=== PATIENT | female | born 1955 | race Caucasian/White ===

== ENCOUNTER 2021-06-13 14:50 | Outpatient (REF) | payer MEDICARE, SELFPAY ==
[2021-06-13 19:20] LABS: Anion Gap 7.3 mmol/L (3-11); BUN 12 mg/dL (7-18); CO2 28.7 mmol/L (21.0-32.0); CREATININE 0.6 mg/dL (0.55-1.02); Calcium 9.4 mg/dL (8.5-10.1); Chloride 106 mmol/L (98-107); Glucose 91 mg/dL (74-106); Potassium 4.8 mmol/L (3.5-5.1); Sodium 142 mmol/L (136-145)
== END 2021-06-13 14:51 | disposition home or self-care (01) ==
LOC: NCHCN 14:50
PROVIDERS: Visit Provider Physician Assistant
DX: E03.9 Hypothyroidism, unspecified (principal); K21.9 Gastro-esophageal reflux disease without esophagitis; E66.9 Obesity, unspecified
CPT/HCPCS: 80048; 84443

== ENCOUNTER 2022-06-19 12:59 | Outpatient (REF) | payer MEDICARE, SELFPAY ==
[2022-06-19 19:31] LABS: Anion Gap 7.3 mmol/L (3-11); BUN 14 mg/dL (7-18); CO2 27.7 mmol/L (21.0-32.0); CREATININE 0.8 mg/dL (0.55-1.02); Calcium 9.2 mg/dL (8.5-10.1); Chloride 104 mmol/L (98-107); Glucose 93 mg/dL (74-106); Potassium 4.3 mmol/L (3.5-5.1); Sodium 139 mmol/L (136-145)
== END 2022-06-19 13:00 | disposition home or self-care (01) ==
LOC: NCHCN 12:59
PROVIDERS: Visit Provider Physician Assistant
DX: E03.9 Hypothyroidism, unspecified (principal); K21.9 Gastro-esophageal reflux disease without esophagitis
CPT/HCPCS: 80048; 84443

== ENCOUNTER 2023-06-23 19:03 | Outpatient (REF) | payer MEDICARE, SELFPAY ==
--- OUTSIDE RECORDS SUMMARY | 2023-06-23 19:08 | XMS_ITS | Continuity of Care Document ---
Author Name Unknown Organization [facility] Address [address] [place] [address] Care Team Providers Care Morning Nanny Name Role Phone Roseanna Caraballo Primary Care Physician Encounter [facility] Date(s): 01/16/23 - 01/16/[address] [address] Discharge Disposition: Home or Self Care Attending Physician: René Lowery MD Admitting Physician: René Lowery MD Referring Physician: Roseanna Caraballo PA-C Allergies, Adverse Reactions, Alerts No Known Medication Allergies Functional Status 01/16/23 ADLs Independent Family Member Travel History No recent t ravel Recent Travel History No recent travel Other exposure to Infectious Disease Non e Medications chromium picolinate 1000 mcg oral tablet 1,000 mcg = 1 tab, Oral, Daily, # 90 tab, 0 Refill(s) Start Date: 12/03/22 Status: Ordered levothyroxine 88 mcg (0.088 mg) oral capsule 88 mcg = 1 cap, Oral, Daily, # 30 cap, 0 Refill(s) Start Date: 12/03/22 Status: Ordered omeprazole 40 mg oral delayed release capsule 40 mg = 1 cap, Oral, Daily, # 30 cap, 0 Refill(s) Start Date: 12/03/22 Status: Ordered Vitamin B Complex oral tablet 1 tab, Oral, Daily, # 30 tab, 0 Refill(s) Start Date: 12/03/22 Status: Ordered Vitamin C 0 Refill(s) Start Date: 12/03/22 Status: Ordered Vitamin D3 0 Refill(s) Start Date: 12/03/22 Status: Ordered Problem List Condition Confirmation Course Effective Dates Status H ealth Status Informant Arthritis Confirmed Active GERD (gastroesophageal reflux disease) Confirmed Active Hypothyroidism Confirmed Active Insomnia Confirmed Active Obesity Confirmed Active Plantar fasciitis Confirmed Active Plantar wart Confirmed Active Procedures Procedure Date Related Diagnosis Body Site Status Cholecystectomy; 01/25/13 Complete d section 1 Comple nohemy Colonoscopy 2 Completed EGD - Esophagogastroduodenoscopy 3 Completed Surgery care 4 Completed w/ T/L - 1980 [id number] 4surg. disectomy 1991 Vital Signs Most recent to oldest [Reference Range]: 1 2 3 Temperature Oral [35.8-37.3 Deg C] 36.9 Deg C (01/16/23 11:53 AM) Temperature Temporal Artery [36-38 Deg C] 35.6 Deg C *LOW* (01/16/23 2:30 PM) 35.3 Deg C *LOW* (01/16/23 1:54 PM) Temperature Temporal Artery (DegF) [97.3-100 Deg F] 96.08 Deg F *LOW* (01/16/23 2:30 PM) 95.54 Deg F *LOW* (01/16/23 1:54 PM) Peripheral Pulse Rate [60-100 bpm] 75 bpm (01/16/23 2:30 PM) 71 bpm (01/16/23 2:25 PM) 61 bpm (01/16/23 2:10 PM) Heart Rate Monitored [60-100 bpm] 74 bpm (01/16/23 2:30 PM) 72 bpm (01/16/23 2:25 PM) 61 bpm (01/16/23 2:10 PM) Respiratory Rate [12-24 br/min] 22 br/min (01/16/23 2:30 PM) 16 br/min (01/16/23 2:25 PM) 10 br/min *LOW* (01/16/23 2:10 PM) Blood Pressure [90-140/60-90 mmHg] 115/84mmHg (01/16/23 2:30 PM) 97/62mmHg (01/16/23 2:25 PM) 104/63mmHg (01/16/23 2:10 PM) Mean Arterial Pressure, Cuff [65-140 mmHg] 94 mmHg (01/16/23 2:30 PM) 74 mmHg (01/16/23 2:25 PM) 77 mmHg (01/16/23 2:10 PM) Blood Pressure Location Left arm (01/16/23 11:53 AM) Blood Pressure Method Automatic (01/16/23 11:53 AM) Weight 65.7 kg (01/16/23 11:53 AM) Height 145 cm (01/16/23 11:53 AM) Social History Social History Type Response Tobacco Never tobacco user T obacco Use:. Sex Female Hospital Discharge Instructions Patient Education 01/16/2023 12:56:32 ss colonoscopy discharge instructions (CUSTOM) COLONOSCOPY / SIGMOIDOSCOPY Following day: Return to full activity, including work. Diet: Eat and drink normally, unless instructed otherwise. Treatment for common after affects: Mild abdominal pain, bloating, or excessive gas: Rest, eat lightly and use a heating pad. Symptoms to watch for and report to your physician: SEVERE abdominal pain or bloating. Fever within 24 hours after procedure. A large amount of rectal bleeding. (A small amount of blood from the rectum is not serious, especially if hemorrhoids are present.) If a polyp has been removed- for the next seven days: Do not take aspirin. If you did NOT stop taking aspirin before your procedure, continue taking it even if you???ve had a polyp removed. If bright red rectal bleeding occurs, call your physician. If you have had a Colonoscopy: Do not attempt to drive a vehicle or operate power equipment of any kind for at least 24 hours after discharge from the hospital. Do not consume alcoholic beverages or other mood-altering drugs on the day of surgery. Mild irritation at needle site: Apply warm, moist pack to area for 20 minutes four times a day for 2-3 days. Call physician if persistent redness and/or drainage at needle site. In the event of any problems after surgery, do not hesitate to contact your doctor, [facility] , or the Emergency Room at [phone]. Diagnosis: Doctor: Follow Up Appointment: Follow Up Care 11/13/2022 14:35:13 With:René Lowery MD Address: [address] [address]- When: Unknown Comments:Screening??colonoscopy in??10 years. Discharge instructions * Sarahy Mckinley: PERFORM Event Display: Discharge Instructions Authored Date: [id number] PAT MAIN :1955 Age:67 years Sex:Female Visit Date:01/16/2023 Primary Care Physician: Roseanna Caraballo PA-C Hospital Discharge Instructions We would like to thank you for allowing us to assist you with your healthcare needs. The following includes patient education materials and information regarding your injury/illness. After you leave the hospital, you may get your health information including your test results, physician notes and discharge information by accessing your Patient Portal. Your Next Steps Follow Up Appointments Follow Up with??René Lowery MD Why: Screening??colonoscopy in??10 years. Where: [address] Your Summary Your Care Team Admitting Physician - René Lowery MD Attending Physician - René Lowery MD Primary Care Physician - Roseanna Caraballo PA-C Referring Physician - Roseanna Caraballo PA-C Education Materials COLONOSCOPY / SIGMOIDOSCOPY ? Following day: Return to full activity, including work. Diet: Eat and drink normally, unless instructed otherwise. ? Treatment for common after affects: Mild abdominal pain, bloating, or excessive gas: Rest, eat lightly and use a heating pad. ? Symptoms to watch for and report to your physician: SEVERE abdominal pain or bloating. ? Fever within 24 hours after procedure. ? A large amount of rectal bleeding. (A small amount of blood from the rectum is not serious, especially if hemorrhoids are present.) ? If a polyp has been removed- for the next seven days: Do not take aspirin. If you did NOT stop taking aspirin before your procedure, continue taking it even if you???ve had a polyp removed. ? If bright red rectal bleeding occurs, call your physician. ? If you have had a Colonoscopy: Do not attempt to drive a vehicle or operate power equipment of any kind for at least 24 hours after discharge from the hospital. ? Do not consume alcoholic beverages or other mood-altering drugs on the day of surgery. ? Mild irritation at needle site: Apply warm, moist pack to area for 20 minutes four times a day for 2-3 days. ? Call physician if persistent redness and/or drainage at needle site. ? In the event of any problems after surgery, do not hesitate to contact your doctor, [facility] , or the Emergency Room at [phone]. Diagnosis: Doctor: Follow Up Appointment: Patient Name:JOSE DAVIDNAPOLEON NaranjoPAT I have received this information and my questions have been answered. Patient/Guest Services Coordinator Name: Patient/Guest Services Coordinator Signature: Relationship to Patient: Witness Name/Signature: Date: Electronically Signed on: 01/16/2023 14:17 ESTSigned by:MARIJA History and physical note * René Lowery MD: PERFORM Event Display: History and Physical Authored Date: [id number] PAT MAIN :1955 Age:67 years Sex:Female Visit Date:01/16/2023 Primary Care Physician: Roseanna Caraballo PA-C See paper H&P; pt examined. Proceed as planned.? René Lowery MD 01/16/2023 ?? Electronically Signed on 01/16/23 01:23 PM René Lowery MD * Deysi Crump: PERFORM Event Display: History and Physical Authored Date: [id number] PAT MAIN :1955 Age:67 years Sex:Female Primary Care Physician: Roseanna Caraballo PA-C Screening colonoscopy. Previous colonoscopy has been scanned into [employer] Electronically Signed on 11/13/22 03:07 PM Deysi Crump Patient Care team information Care Team Personnel Name: Roseanna Caraballo PA-C Position: PowerChart View Only Member Role: Primary Care Physician Address: Address: [place] [address]- Care Team Related Persons Name: JORDIN MAIN Address: Home Name: EULOGIO MAIN Address: Home
[2023-06-23 20:48] LABS: ALT 26 U/L (14-59); AST 24 U/L (15-37); Albumin 3.6 g/dL (3.4-5.0); Alkaline Phosphatase 134 U/L (46-116); Anion Gap 9.5 mmol/L (3-11); BUN 12 mg/dL (7-18); Bilirubin, Total 0.5 mg/dL (0.2-1.0); CO2 25.5 mmol/L (21.0-32.0); CREATININE 0.8 mg/dL (0.55-1.02); Calcium 9.1 mg/dL (8.5-10.1); Chloride 107 mmol/L (98-107); Estimated GFR 79.71 (mL/min/1.73m2); Glucose 103 mg/dL (74-106); Potassium 4.3 mmol/L (3.5-5.1); Sodium 142 mmol/L (136-145); TSH 2.16 uIU/mL (0.36-3.74); Total Protein 7.2 g/dL (6.4-8.2)
== END 2023-06-23 19:04 | disposition home or self-care (01) ==
LOC: NCHCN 19:03
PROVIDERS: Visit Provider Physician Assistant
DX: E03.9 Hypothyroidism, unspecified (principal); K21.9 Gastro-esophageal reflux disease without esophagitis; G47.00 Insomnia, unspecified
CPT/HCPCS: 80053; 84443

== ENCOUNTER 2025-08-08 14:55 | Outpatient (REF) | payer MEDICARE, SELFPAY ==
[2025-08-08 19:50] LABS: Abs Immature Grans 0.02 10^3/uL (0.0-0.06); HCT 43.6 % (36.0-46.0); HGB 14.3 g/dL (11.2-15.7); Immature Grans % 0.3 %; MCH 30.2 pg (27.0-33.0); MCHC 32.8 % (32.0-36.0); MCV 92 fL (80-95); MPV 10.7 fL (8.0-11.0); Platelet Count 332 10^3/uL (130-400); RBC 4.74 10^6/uL (3.93-5.22); RDW 13.2 % (11.7-14.6); RDW-SD 45.0 fL; WBC 7.95 10^3/uL (4.4-10.8)
[2025-08-08 20:32] LABS: ALT 22 U/L (14-59); AST 19 U/L (15-37); Albumin 3.7 g/dL (3.4-5.0); Alkaline Phosphatase 124 U/L (46-116); Anion Gap 7.7 mmol/L (3-11); BUN 13 mg/dL (7-18); Bilirubin, Total 0.3 mg/dL (0.2-1.0); CO2 28.3 mmol/L (21.0-32.0); Calcium 9.5 mg/dL (8.5-10.1); Chloride 107 mmol/L (98-107); Estimated GFR 78.72 (mL/min/1.73m2); Ferritin 611 ng/mL (8-252); Glucose 100 mg/dL (74-106); Magnesium 2.2 mg/dL (1.8-2.4); Potassium 4.6 mmol/L (3.5-5.1); Sodium 143 mmol/L (136-145); TSH (W/Ref FT4) 2.15 uIU/mL (0.36-3.74); Total Protein 7.1 g/dL (6.4-8.2)
[2025-08-08 20:41] LABS: Iron 50 ug/dL (50-170); Total Iron Binding Capacity 281 ug/dL (250-450); Transferrin Sat 18 % (15-50)
== END 2025-08-08 14:56 | disposition home or self-care (01) ==
LOC: NCHCN 14:55
PROVIDERS: PCP Physician Assistant; Visit Provider Physician Assistant
DX: Z86.2 Personal history of diseases of the blood and blood-forming organs and certain disorders involving the immune mechanism (principal); E03.9 Hypothyroidism, unspecified
CPT/HCPCS: 80053; 82728; 83540; 83550; 83735; 84443; 85025